=== PATIENT | female | born 1970 | race Caucasian/White ===

== ENCOUNTER → 2016-10-22 | Outpatient (CLI) | payer OTHER ==
--- NOTE | 2016-10-23 09:21 | RAD ---
EXAM DESCRIPTION: Abdomen radiography. CLINICAL HISTORY: Abdominal pain. COMPARISON: None. TECHNIQUE: Two views. FINDINGS: Bowel gas pattern is non-obstructed. There is no obvious free intraperitoneal air. Visualized segments of the abdominal organs are unremarkable. No suspicious bone lesion or fracture is seen. Phleboliths seen within the abdomen. IMPRESSION: Nonspecific small bowel gas pattern. No free air underneath the diaphragms to suggest a perforation at this time. Electronically signed by: Simone Collins MD 10/23/2016 09:19
== END | disposition home or self-care (01) ==
LOC: LAB.O 16:39
PROVIDERS: ATTEND Obstetrics & Gynecology
DX: R10.9 Unspecified abdominal pain (principal)